=== PATIENT | female | born 1980 | race Caucasian/White ===

== ENCOUNTER → 2018-04-18 09:09 | Outpatient (CLI) | payer OTHER, SELFPAY ==
[2018-04-18 11:38] LABS: Hematocrit 41.5 % (37-47); Hemoglobin 13.2 g/dl (12.0-15.0); Mean Corp Hgb Conc 31.8 g/gl (32-36); Mean Corpuscular Hgb 29.6 pg (27.0-32.0); Mean Platelet Vol. 9.2 fl (6.2-12.0); Platelet Count 351 K/mm3 (150-450); RBC Distribution Width CV 12.7 % (11.6-14.6); RBC Distribution Width SD 43.1 fl (35.1-43.9); Red Blood Count 4.46 M/mm3 (4.2-5.4); White Blood Count 8.3 K/mm3 (4.4-11.0)
[2018-04-18 11:39] LABS: Scan Indicated on CBC? Y/N NO
[2018-04-18 12:02] LABS: Hemoglobin A1c 5.7 % (4.2-6.3); Progesterone Level 7.72 ng/mL (See Comment)
[2018-04-18 12:03] LABS: Estradiol 92.2 pg/mL; Free T3 2.8 pg/mL (2.18-3.98); T4 Free Direct 0.79 ng/dL (0.76-1.46); Thyroid Stim Hormone (TSH) 4.62 uIU/mL (0.358-3.74)
[2018-04-22 08:23] LABS: HPV Reflexed? NOT INDICATED
== END ==
PROVIDERS: Visit Provider Obstetrics & Gynecology
DX: Z12.4 Encounter for screening for malignant neoplasm of cervix (principal); N92.0 Excessive and frequent menstruation with regular cycle; N94.6 Dysmenorrhea, unspecified
CPT/HCPCS: 36415; 82670; 83036; 84144; 84403; 84439; 84443; 84481; 85027; 88175; G0145

== ENCOUNTER → 2019-12-08 13:34 | Outpatient (CLI) | payer OTHER, SELFPAY ==
[2019-12-13 05:47] LABS: HPV APTIMA, High Risk Negative (Negative)
== END ==
PROVIDERS: Visit Provider Student in an Organized Health Care Education/Training Program
DX: Z12.4 Encounter for screening for malignant neoplasm of cervix (principal)
CPT/HCPCS: 87624; 88175; G0145

== ENCOUNTER → 2020-01-05 07:12 | Outpatient (CLI) | payer OTHER, SELFPAY ==
--- NOTE | 2020-01-05 07:14 | BI_ITS ---
MAMMOGRAPHY - BILATERAL SCREENING REASON FOR EXAM: Female, 39 years old. Routine annual screening examination. PERTINENT HISTORY: Grandmother with breast cancer. TECHNIQUE: Digital bilateral breast tico (3D mammographic acquisition) in the CC and MLO projections. 2-D mediolateral oblique (MLO) and craniocaudad (CC) views of both breasts were obtained. CAD: Full Field Digital Mammography with Computer Added Detection was performed. COMPARISON: Comparison is made with prior examination dated 03/29/2017. FINDINGS: Breast Composition: The breasts are extremely dense, which lowers the sensitivity of mammography. There are no dominant masses or suspicious calcifications. No other significant abnormalities are identified. There has been no significant change since the prior study. BI/SCREEN MAMM (CAD) W/TICO BILAT IMPRESSION: Stable bilateral screening mammogram. Yearly follow-up mammogram recommended. (A) ASSESSMENT CATEGORY: BIRADS Category 1: Negative. A letter regarding these results will be sent to the patient by the facility within 30 days. Approximately 10% of breast cancers are not detected by mammography. A normal mammogram should not delay biopsy of a clinically suspicious abnormality. [id number] Electronically Signed: Mu Austin, at 8:32 EDT , Service support ,
== END ==
PROVIDERS: PCP Student in an Organized Health Care Education/Training Program; Referring Provider Student in an Organized Health Care Education/Training Program; Visit Provider Student in an Organized Health Care Education/Training Program
DX: Z12.31 Encounter for screening mammogram for malignant neoplasm of breast (principal); Z80.3 Family history of malignant neoplasm of breast
CPT/HCPCS: 77063; 77067

== ENCOUNTER → 2020-02-19 10:26 | Outpatient (CLI) | payer OTHER, SELFPAY ==
[2020-02-19 12:28] LABS: Progesterone Level 0.85 ng/mL (See Comment)
[2020-02-19 12:30] LABS: Estradiol 262.9 pg/mL; Follicle Stimulating Hormone 18.8 mIU/mL; Luteinizing Hormone 56.4 mIU/mL
== END ==
PROVIDERS: PCP Student in an Organized Health Care Education/Training Program; Visit Provider Student in an Organized Health Care Education/Training Program
DX: N94.5 Secondary dysmenorrhea (principal); N94.2 Vaginismus
CPT/HCPCS: 36415; 82670; 83001; 83002; 84144

== ENCOUNTER → 2021-02-15 11:00 | Outpatient (CLI) | payer OTHER, SELFPAY | PROVIDERS: PCP Student in an Organized Health Care Education/Training Program; Visit Provider Family Medicine | DX: Z23 Encounter for immunization (principal) | CPT/HCPCS: 0004A; 91300 ==

== ENCOUNTER → 2021-02-28 13:39 | Outpatient (CLI) | payer OTHER, SELFPAY ==
[2021-03-07 17:07] LABS: HPV APTIMA, High Risk Negative (Negative)
== END ==
PROVIDERS: PCP Student in an Organized Health Care Education/Training Program; Visit Provider Student in an Organized Health Care Education/Training Program
DX: Z12.4 Encounter for screening for malignant neoplasm of cervix (principal)
CPT/HCPCS: 87624; 88175; G0145

== ENCOUNTER → 2021-03-24 07:25 | Outpatient (CLI) | payer OTHER, SELFPAY ==
--- NOTE | 2021-03-24 07:35 | BI_ITS ---
MAMMOGRAPHY - BILATERAL SCREENING REASON FOR EXAM: Female, 41 years old. Routine annual screening examination. PERTINENT HISTORY: Grandmother with breast cancer. TECHNIQUE: Digital bilateral breast tico (3D mammographic acquisition) in the CC and MLO projections. 2-D mediolateral oblique (MLO) and craniocaudad (CC) views of both breasts were obtained. CAD: Full Field Digital Mammography with Computer Added Detection was performed. COMPARISON: Comparison is made with prior study dated 01/05/2020 and 03/29/2017. FINDINGS: Breast Composition: The breasts are extremely dense, which lowers the sensitivity of mammography. There is a 2.2 cm x 2.9 cm well-defined nodule in the upper lateral aspect of the right breast. Adjacent to this nodule, there is a well-defined 1.6 cm nodule Correlation with ultrasound is recommended. Stable small benign-appearing bilateral axillary lymph nodes. No other significant abnormalities are identified. BI/SCRN MAMM (CAD)W/TICO BILAT IMPRESSION: 2.2 cm x 2.9 cm well-defined nodule in the upper lateral aspect of the right breast as well as an adjacent 1.6 cm nodule. Correlation with ultrasound is recommended. ASSESSMENT CATEGORY: BIRADS Category 0: Incomplete. Need additional imaging evaluation. A letter regarding these results will be sent to the patient by the facility within 30 days. Approximately 10% of breast cancers are not detected by mammography. A normal mammogram should not delay biopsy of a clinically suspicious abnormality. [id number] Electronically Signed: Mu Austin MD at 9:05 EST , Service support ,
== END ==
PROVIDERS: PCP Student in an Organized Health Care Education/Training Program; Referring Provider Student in an Organized Health Care Education/Training Program; Visit Provider Student in an Organized Health Care Education/Training Program
DX: Z12.31 Encounter for screening mammogram for malignant neoplasm of breast (principal)
CPT/HCPCS: 77063; 77067

== ENCOUNTER → 2021-03-28 13:54 | Outpatient (CLI) | payer OTHER, SELFPAY ==
--- NOTE | 2021-03-28 13:57 | US_ITS ---
STUDY: ULTRASOUND BREAST - RIGHT REASON FOR EXAM: Female, 41 years old. Abnormal screening mammogram. TECHNIQUE: Axial and longitudinal images of the RIGHT breast were performed with a high resolution ultrasound transducer. # OF IMAGES: 18 COMPARISON: Comparison is made with prior mammogram dated 03/24/2021. FINDINGS: RIGHT Breast: There is a 2.5 cm x 2.2 cm x 1 cm cyst at the 11 o''clock position of the breast at 3 cm from the nipple. This also evidence of a 1 cm x 0.9 cm x 0.6 cm cyst at the 11 o''clock position of the breast at 2 cm from the nipple. US/Breast Limited Unilateral IMPRESSION: The mammographic findings correspond to 2 adjacent cysts at the 11 o''clock position of the breast at 2 and 3 cm from the nipple. The largest cyst measures 2.5 cm x 2.2 cm x 1 cm. ASSESSMENT CATEGORY: BIRADS Category 2: Benign. A letter regarding these results will be sent to the patient by the facility within 30 days. Electronically Signed: Mu Austin MD at 15:13 EST , Service support ,
== END ==
PROVIDERS: PCP Student in an Organized Health Care Education/Training Program; Referring Provider Student in an Organized Health Care Education/Training Program; Visit Provider Student in an Organized Health Care Education/Training Program
DX: N60.01 Solitary cyst of right breast (principal)
CPT/HCPCS: 76642

== ENCOUNTER → 2022-04-12 | Outpatient (CLI) | payer OTHER, SELFPAY ==
--- NOTE | 2022-04-12 07:43 | BI_ITS ---
MAMMOGRAPHY - BILATERAL SCREENING REASON FOR EXAM: Female, 42 years old. Routine annual screening examination. PERTINENT HISTORY: Grandmothers with breast cancer. TECHNIQUE: Digital bilateral breast tico (3D mammographic acquisition) in the CC and MLO projections. 2-D mediolateral oblique (MLO) and craniocaudad (CC) views of both breasts were obtained. CAD: Full Field Digital Mammography with Computer Added Detection was performed. COMPARISON: Comparison is made with prior study dated 03/24/2021 and 01/05/2020. FINDINGS: Breast Composition: The breasts are extremely dense, which lowers the sensitivity of mammography. Stable 3 cm x 2.9 cm well-defined nodule in the upper lateral aspect of the right breast. This was demonstrated to be a cyst on prior sonogram. Stable small fat-containing bilateral axillary lymph nodes. No other significant abnormalities are identified. There has been no significant change since the prior study. BI/SCRN MAMM (CAD)W/TICO BILAT IMPRESSION: Stable bilateral screening mammogram. Yearly follow-up mammogram recommended. (A) ASSESSMENT CATEGORY: BIRADS Category 2: Benign. A letter regarding these results will be sent to the patient by the facility within 30 days. Approximately 10% of breast cancers are not detected by mammography. A normal mammogram should not delay biopsy of a clinically suspicious abnormality. [id number] Electronically Signed: Mu Austin MD at 9:21 EST ,
== END | disposition home or self-care (01) ==
LOC: OPBI 07:42
PROVIDERS: PCP Student in an Organized Health Care Education/Training Program; Visit Provider Obstetrics & Gynecology
DX: Z12.31 Encounter for screening mammogram for malignant neoplasm of breast (principal)
CPT/HCPCS: 77063; 77067

== ENCOUNTER → 2023-04-15 | Outpatient (CLI) | payer OTHER, SELFPAY ==
--- NOTE | 2023-04-15 07:51 | BI_ITS ---
MAMMOGRAPHY - BILATERAL SCREENING REASON FOR EXAM: Female, 43 years old. Routine annual screening examination. PERTINENT HISTORY: Grandmother with breast cancer. TECHNIQUE: Digital bilateral breast tico (3D mammographic acquisition) in the CC and MLO projections. 2-D mediolateral oblique (MLO) and craniocaudad (CC) views of both breasts were obtained. CAD: Full Field Digital Mammography with Computer Added Detection was performed. COMPARISON: Comparison is made with prior study dated October 10, 2022 and March 24, 2021. FINDINGS: Breast Composition: The breasts are extremely dense, which lowers the sensitivity of mammography. Stable 3 cm x 2.9 cm well-defined nodule in the upper lateral aspect of the right breast. This was demonstrated to be a cyst on prior sonogram. No other significant abnormalities are identified. There has been no significant change since the prior study. BI/SCRN MAMM (CAD)W/TICO BILAT IMPRESSION: Stable bilateral screening mammogram. Yearly follow-up mammogram recommended. (A) ASSESSMENT CATEGORY: BIRADS Category 2: Benign. A letter regarding these results will be sent to the patient by the facility within 30 days. Approximately 10% of breast cancers are not detected by mammography. A normal mammogram should not delay biopsy of a clinically suspicious abnormality. [id number] Electronically Signed: Mu Austin MD at 15:46 EST ,
--- OUTSIDE RECORDS SUMMARY | 2023-04-15 08:18 | XMS RPT_ITS | CCD ---
Author Name Unknown Address [address] [place] [address] Organization [facility] Care Team Providers Care 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 Name Role Phone Hong Pino DO Primary Care Provider [phone] HONG PINO Primary Care Unavailable HONG PINO Attending Unavailable HONG PINO Primary Care Unavailable JOHANNE TOSCANO Referring Unavailable HONG PINO Referring Unavailable HONG PINO Primary Care Unavailable HONG PINO Primary Care Unavailable Hong Pino DO Primary Care Provider Medications Current Medications Medication Drug Class(es) Dates Sig (Normalized) Sig (Original) triamcinolone acetonide 1 mg/ml topical cream (1 source) Corticosteroid Start: 09-29-2021 End: 10-06-2021 triamcinolone acetonide (KENALOG) 0.1 % cream Apply 1 application to affected area twice daily for 7 days. Apply sparingly to area for rash/itching. 45 g 0 09/29/2021 10/06/2021 Active Completed/Discontinued Medications Medication Drug Class(es) Dates Sig (Normalized) Sig (Original) azelastine hydrochloride 0.137 mg/actuat / fluticasone propionate 0.05 mg/actuat metered dose nasal spray (18 sources) Corticosteroid, Histamine-1 Receptor Antagonist Start: 03-05-2022 take 1 spray(s) nasal route twice daily azelastine-flutic asone 137-50 mcg/spray spry USE ONE SPRAY IN EACH NOSTRIL TWICE DAILY 23 g 5 03/05/2022 Active Problems Active Problems Problem Classification Problem Date Documented Da te Episodic/Chronic Anxiety disorders (17 sources) Anxiety disorder; Translations: [Anxiety disorder, unspecified] Onset: 08-19-2015 08-19-2015 Chronic Cardiac dysrhythmias (17 sources) Premature atrial contraction; Translations: [Atrial premature depolarization] Onset: 08-19-2015 08-19-2015 Chronic Disorders of lipid metabolism (20 sources) Pure hypercholesterolemi a; Translations: [Pure hypercholesterolemi a, unspecified] Onset: 08-19-2015 08-19-2015 Chronic Genitourinary symptoms and ill-defined conditions (17 sources) Female stress incontinence; Translations: [Stress incontinence (female) (male)] Onset: 03-20-2021 03-20-2021 Chronic Headache; including migraine (1 source) Refractory migraine with aura; Translations: [Migraine with aura, intractable, without status migrainosus] Chronic Nutritional deficiencies (17 sources) Vitamin D deficiency; Translations: [Vitamin D deficiency, unspecified] Onset: 08-19-2015 08-19-2015 Chronic Other skin disorders (1 source) Eruption; Translations: [Rash and other nonspecific skin eruption] Episodic Thyroid disorders (20 sources) Subclinical hypothyroidism; Translations: [Other specified hypothyroidism] Onset: 07-09-2018 07-09-2018 Chronic Past or Other Problems Problem Classification Problem Date Documented Da te Episodic/Chronic Genitourinary symptoms and ill-defined conditions (17 sources) Urgent desire to urinate; Translations: [Urgency of urination] Onset: 03-20-2021 03-20-2021 Episodic Malaise and fatigue (17 sources) Fatigue; Translations: [Other fatigue] Onset: 05-27-2019 05-27-2019 Episodic Results Test Name Value Interpretation Reference Range Facil ity Vital Signs Date Time Vital Sign Value Performing Clinician Demond acharya 09-29-2021 15:25-0400 Body temperature 98.2 [degF] Luke Jason APRN.CNP Work Phone: [facility] 09-29-2021 15:25-0400 Body weight 65.5 kg Luke Jason APRN.CNP Work Phone: [facility] 09-29-2021 15:25-0400 Diastolic blood pressure 74 mm[Hg] Luke Jason APRN.CNP Work Phone: [facility] 09-29-2021 15:25-0400 Heart rate 75 /min Luke Jason APRN.CNP Work Phone: [facility] 09-29-2021 15:25-0400 Respiratory rate 16 /min Luke Pugaanjelica PATIENT SERVICES ASSISTANT.PARKING ATTENDANT Work Phone: [facility] 09-29-2021 15:25-0400 SaO2% (BldA) [Mass fraction] 99 % Luke Pugaanjelica PATIENT SERVICES ASSISTANT.PARKING ATTENDANT Work Phone: [facility] 09-29-2021 15:25-0400 Systolic blood pressure 122 mm[Hg] Luke Pugaanjelica PATIENT SERVICES ASSISTANT.PARKING ATTENDANT Work Phone: [facility] Encounters Encounter Date Encounter Type Care Provider Facility Start: 02-26-2023 Refill Johanne Toscano PATIENT SERVICES ASSISTANT.PARKING ATTENDANT Work Phone: [facility] [place] Procedures Date Procedure Procedure Detail Performing Clinician Start: 04-12-2022 Mammography Hong hayes DO Work Phone: Start: 06-17-2021 Adult depression scr eening assessment Joao Abraham MD Work Phone: Plan of Treatment Date Care Activity Detail Author Start: 02-28-2026 HPV TESTING HPV TESTING [facility] Start: 02-28-2026 PAP TESTING PAP TESTING [facility] Start: 06-30-2023 ANNUAL PCP TEAM CHRONIC DISEASE VISIT ANNUAL PCP TEAM CHRONIC DISEASE VISIT [facility] Start: 04-12-2023 Mammography [facility] Start: 12-07-2022 Covid-19 Vaccine ( season) Covid-19 Vaccine () [facility] Start: 12-07-2022 Influenza vaccination [facility] Start: 06-21-2022 ANNUAL PCP TEAM CHRONIC DISEASE VISIT ANNUAL PCP TEAM CHRONIC DISEASE VISIT [facility] Start: 06-17-2022 Adult depression screening assessment DEPRESSION SCREENING [facility] Start: 06-03-2022 End: 08-03-2022 CBC W Auto Differential panel - Blood CBC + DIFF Lab Routine Wellness examination Expected: 06/03/2022, Expires: 08/03/2022 [facility] Work Phone: Immunizations Immunization Date Immunization Notes Care Provider Liliana fernandez 11-09-2022 influenza, seasonal, injectable Johanne Toscano APRN.PARKING ATTENDANT Work Phone: [facility] Work Phone: 02-14-2022 influenza virus vaccine, unspecified formulation Johanne Everton GUEVARA.PARKING ATTENDANT Work Phone: [facility] 03-15-2021 influenza, seasonal, injectable Joao Abraham MD Work Phone: [facility] Work Phone: 02-17-2020 influenza, seasonal, injectable Joao Abraham MD Work Phone: [facility] Work Phone: Payers Date Payer Category Payer Unknown [id number] 2020 Unknown [facility] PPO [employer] [id number] 2020-Present [phone] [address] [place] [address] PPO [id number] 2020 Unknown [id number] Social History Date Type Detail Facility Start: 07-28-2014 End: 06-29-2022 Tobacco smoking status NHIS Never smoked tobacco [facility] Work Phone: Start: 07-28-2014 End: 06-29-2022 Tobacco use and exposure Smokeless tobacco non-user [facility] Work Phone: Start: 06-21-2021 End: 06-29-2022 Alcohol intake Current non-drinker of alcohol (finding) [facility] Start: 06-18-2021 End: 06-22-2022 History SDOH Alcohol Frequency 4 [facility] Start: 06-18-2021 End: 06-22-2022 History SDOH Alcohol Std Drinks 1 [facility] Start: 06-18-2021 End: 06-22-2022 History SDOH Alcohol Binge 2 [facility] Start: 06-18-2021 End: 06-22-2022 History SDOH Social Connections Phone 5 [facility] Start: 06-18-2021 End: 06-22-2022 History SDOH Social Connections Living 3 [facility] Start: 06-13-2020 Education 17 [facility] Start: 1980 Sex Assigned At Female C [facility] Start: 06-11-2021 End: 09-29-2021 Exposure to SARS-CoV-2 (event) Not sure [facility] Work Phone: Start: 06-22-2022 History SDOH Social Connections Meetings 98 [facility] Start: 06-22-2022 End: 06-29-2022 History of Social function [facility] Start: 06-22-2022 End: 06-29-2022 Social connection and isolation panel [facility] Attends [employer] Not on file [facility] Do you belong to any clubs or organizations such as mormonism groups, unions, fraternal or athletic groups, or school groups? No [facility] Are you now , , , , never or living with a partner? [facility] How often to you hav e a drink containing alcohol? 2-3 time sa week [facility] How many standard dr inks containing alcohol do you have on a typical day? 1 or 2 [facility] How often do you hav e 6 or more drinks on 1 occasion? Never [facility] Do you feel stress - tense, restless, nervous, or anxious, or unable to sleep at night because your mind is troubled all the time - these days [OSQ] Not at all [facility] (I/We) worried wheth er (my/our) food would run out before (I/we) got money to buy more. Never true [facility] Start: 09-05-2018 Gender identity Identifies as female gender (finding) [facility] Start: 09-05-2018 Sexual orientation Homosexual (findi ng) [facility] Clinical Notes 07-11-2021 to 02-26-2023 Telephone Encounter - Emilie Hollis LPN - 02/26/2023 11:25 AM ESTTelephone Encounter - Mary Walker Ma - 12/03/2022 10:09 AM EDTTelephone Encounter - Sera Swift Ma - 12/07/2021 8:30 AM EDT Note Date & Type Note Facility 02-26-2023 Miscellaneous Notes Formattin g of this note is different from the original. Patient has been identified by name and date of : Yes Patient phones for refill(s): Requested Prescriptions Pending Prescriptions Disp Refills rosuvastatin (CRESTOR) 5 mg tablet 90 tablet 0 Sig: Take 1 tablet by mouth daily at bedtime. Date of last office visit in primary care: 06/29/2022 Date of next office visit in primary care: Visit date not found Please advise. Thank you. Emilie Hollis LPN. documented in this encounter [facility] 12-03-2022 Miscellaneous Notes Formattin g of this note might be different from the original. See refill request 12/03/22 documented in this encounter [facility] 12-03-2022 Miscellaneous Notes Formattin g of this note might be different from the original. Last office visit: 06/29/22 F/u scheduled: none Mary Walker Ma documented in this encounter [facility] 09-08-2022 Miscellaneous Notes Formattin g of this note might be different from the original. Judi--06/29/22 Judi--nothing scheduled Last refill--06/04/22 90 with 0 refills Last labs--06/23/22 documented in this encounter [facility] 06-29-2022 Note HNO ID: [id number] Author: Hong Pino, DO Service: ? Author Type: Physician Type: Progress Notes Filed: 07/04/2022 9:38 PM Note Text: CC: Sandro Trimble is a 42 year old female who presents to the office for physical HPI: Dyslipidemia, taking crestor 5 mg a day, tolerating well without SE to medications The 10-year ASCVD risk score (Yan DK, et al., 2019) is: 0.5% Values used to calculate the score: Age: 42 years Sex: Female Is Non- : No Diabetic: No Tobacco smoker: No Systolic Blood Pressure: 110 mmHg Is BP treated: No HDL Cholesterol: 45 mg/dL Total Cholesterol: 182 mg/dL Cholesterol, Total Date Value Ref Range Status 06/23/2022 182 <200 mg/dL Final Comment: <200 mg/dL, Desirable 200-239 mg/dL, Borderline high >239 mg/dL, High HDL Cholesterol Date Value Ref Range Status 06/23/2022 45 >39 mg/dL Final Comment: 40-59 mg/dL, Acceptable >59 mg/dL, High: Negative risk factor for coronary heart disease <40 mg/dL, Low: Positive risk factor for coronary heart disease LDL Cholesterol Date Value Ref Range Status 06/23/2022 120 (H) <100 mg/dL Final Comment: <100 mg/dL, Optimal 100-129 mg/dL, Near optimal/above optimal 130-159 mg/dL, Borderline high 160-189 mg/dL, High >189 mg/dL, Very high Secondary prevention optimal LDL Cholesterol levels are recommended to be < 70 mg/dL Triglyceride Date Value Ref Range Status 06/23/2022 86 <150 mg/dL Final Comment: <150 mg/dL, Normal 150-199 mg/dL, Borderline high 200-499 mg/dL, High >499 mg/dL, Very high Has had 2 mammograms now, no breast concerns. Hypothyroidism, taking levothyroxine, tolerating well TSH Date Value Ref Range Status 06/23/2022 0.836 0.270 - 4.200 mIU/L Final Comment: If the patient is , TSH reference range varies by gestational period: First Trimester (weeks 9-12): 0.180-2.990 mIU/L Second Trimester: 0.110-3.980 mIU/L Third Trimester: 0.480-4.710 mIU/L Saeid Mendoza et al. A Practical Approach for the Verifications and Determination of Site- and Trimester-Specific Reference Intervals for Thyroid Function tests in . Thyroid, 2019:29:3:412-420. Chandler E, et al. 2017 Guidelines of the [place] Thyroid Association for the Diagnosis and Management of Thyroid Disease during and the . Thyroid, 2017:27:3:315-389. Free T4 Date Value Ref Range Status 06/23/2022 1.4 0.9 - 1.7 ng/dL Final Glucose (mg/dL) Date Value 06/23/2022 100 06/14/2020 87 Potassium (mmol/L) Date Value 06/23/2022 4.6 06/14/2020 4.3 Sodium (mmol/L) Date Value 06/23/2022 140 06/14/2020 139 Chloride (mmol/L) Date Value 06/23/2022 104 06/14/2020 103 CO2 (mmol/L) Date Value 06/23/2022 26 06/14/2020 29 Creatinine (mg/dL) Date Value 06/23/2022 0.83 06/14/2020 0.80 BUN (mg/dL) Date Value 06/23/2022 9 06/14/2020 14 Anion Gap (mmol/L) Date Value 06/23/2022 10 06/14/2020 7 Calcium (mg/dL) Date Value 06/14/2020 9.5 Calcium, Total (mg/dL) Date Value 06/23/2022 9.8 Protein, Total (g/dL) Date Value 06/23/2022 7.4 06/14/2020 7.2 Albumin (g/dL) Date Value 06/23/2022 4.7 06/14/2020 4.3 Bilirubin, Total (mg/dL) Date Value 06/23/2022 0.4 06/14/2020 0.2 Alkaline Phosphatase (U/L) Date Value 06/23/2022 51 06/14/2020 61 AST (U/L) Date Value 06/23/2022 20 06/14/2020 22 ALT (U/L) Date Value 06/23/2022 13 06/14/2020 11 Hemoglobin (g/dL) Date Value 06/23/2022 14.0 08/02/2020 13.3 Hematocrit (%) Date Value 06/23/2022 42.6 08/02/2020 39.7 WBC (k/uL) Date Value 06/23/2022 9.99 08/02/2020 9.38 PAST MEDICAL HISTORY Diagnosis Date Anxiety Cold sore recurrent, history of Environmental allergies never tested History of mammogram 03/29/2017 routine d/t family hx breast cancer- grandmother Premature atrial contractions 08/2015 [facility] monitor Vitamin D deficiency 06/2015 PAST SURGICAL HISTORY Procedure Laterality Date NONE Social History: Social History Tobacco Use Smoking status: Never Smokeless tobacco: Never Substance Use Topics Alcohol use: No Drug use: No FAMILY HISTORY Problem Relation Age of Onset Lipids Mother Heart Father pacemaker other (migraine headache) Father Breast Cancer Maternal Grandmother Heart Maternal Grandfather other (Parkinsons) Maternal Grandfather Breast Cancer Paternal Grandmother Heart Paternal Grandfather pacemaker Hypertension Paternal Grandfather Cancer Paternal Grandfather Current Outpatient prescriptions: levothyroxine (SYNTHROID) 112 mcg tablet Take 1 tablet by mouth daily before breakfast. rosuvastatin (CRESTOR) 5 mg tablet Take 1 tablet by mouth daily at bedtime. montelukast (SINGULAIR) 10 mg tablet Take 1 tablet by mouth daily at bedtime. azelastine-fluticasone 137-50 mcg/spray spry USE ONE SPRAY IN EACH NOSTRIL TWICE DAILY SUMAtriptan (IMITREX) (more content not included)... [facility] 06-25-2022 Miscellaneous Notes Formattin g of this note might be different from the original. Ujdi--06/21/21 Nov--06/29/22 Last refill--06/21/21 90 with 3 refills Last labs--06/23/22 documented in this encounter [facility] 06-04-2022 Miscellaneous Notes Formattin g of this note might be different from the original. Judi--06/21/21 Nov--06/29/22 Last refill--03/05/22 90 with 0 refills Last labs--05/03/22 documented in this encounter [facility] 05-16-2022 Miscellaneous Notes Formattin g of this note is different from the original. Patient phones requesting refills as follows: Requested Prescriptions Pending Prescriptions Disp Refills montelukast (SINGULAIR) 10 mg tablet 90 tablet 1 Sig: Take 1 tablet by mouth daily at bedtime. JUDI-06/21/21 Labs-11/23/21 NOV-06/29/21 med filled 11/23/21 Please review and advise. Malika Collins LPN documented in this encounter [facility] 12-18-2021 Miscellaneous Notes Formattin g of this note might be different from the original. Patient states she will hold off on titer at this time & try a personal exemption. Lilia Torre MA Please call patient and clarify her message further. Would she be willing to have Varicella titer lab drawn to see if she is still Varicella immune? I don't have these records otherwise of her varicella in childhood Hong Pino DO Please see pt [employer] message. Turned into TE per JG. 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 Would Dr. Pino be able to complete the attached exemption form and either send it back to me or directly to [employer] via email ( ) or fax ([phone])? If this form can not be completed, please let me know so I can figure out what my next steps need to be. [email or web address] Thank you! documented in this encounter [facility] 12-18-2021 Miscellaneous Notes Formattin g of this note might be different from the original. Turned into TE per JG Sera Swift Ma documented in this encounter [facility] 12-07-2021 Miscellaneous Notes Formattin g of this note might be different from the original. Thank you. The following approved medication requests have been transmitted electronically. Requested Prescriptions Signed Prescriptions Disp Refills rosuvastatin (CRESTOR) 5 mg tablet 90 tablet 0 Sig: Take 1 tablet by mouth daily at bedtime. Authorizing Provider: JOHANNE WORRELL APRN.CNP Pt informed, verbalized understanding. Pt is willing to try Crestor. Please send rx to [facility] in [place]. Sera Swift Ma Please inform patient that overall her thyroid labs are stable. Her cholesterol remains very elevated, including total, LDL, triglyceride levels. Please ask if she is willing to try a low dose cholesterol medication crestor 5-10 mg a day Also needs to be following low cholesterol diet as well. Hong Pino DO documented in this encounter [facility] 12-04-2021 Miscellaneous Notes Formattin g of this note might be different from the original. See update from pt. Myriam Landa Ma Thank you for reaching out to us through [employer]. We have forwarded your message to your provider. Our goal is to respond within 3 business days. If you feel your message is urgent in nature, please call the office instead. Thank you for choosing [facility] for your health care needs. documented in this encounter [facility] 12-04-2021 Miscellaneous Notes Formattin g of this note might be different from the original. Judi--- 06/21/21 nov---nothing scheduled Last refill-- 03/14/18 12 with 5 refills Last labs--11/23/21 documented in this encounter [facility] 11-23-2021 Miscellaneous Notes Formattin g of this note is different from the original. Patient phones requesting refills as follows: Requested Prescriptions Pending Prescriptions Disp Refills montelukast (SINGULAIR) 10 mg tablet 90 tablet 1 Sig: Take 1 tablet by mouth daily at bedtime. JUDI-06/21/21 Labs-06/09/21 NOV-none med filled 06/07/21 Please review and advise. Malika Collins LPN documented in this encounter [facility] 09-29-2021 Note HNO ID: [id number] Author: Luke Jason APRN.PARKING ATTENDANT Service: ? Author Type: Nurse Practitioner Type: Progress Notes Filed: 09/29/2021 3:52 PM Note Text: Subjective HPI Nontoxic-appearing female presents urgent care chief plaint pruritic rash. Duration of symptoms 5 days. Associated symptoms erythematous pruritic rash on her torso. States this developed shortly after her camping trip was over. Has not use any OTC medications. No recent lifestyle or medication changes no antibiotic use. There is no pain. Denies any fever body aches chills nausea vomiting abdominal pain change in bowel or bladder habits. Past medical history prescription medication use allergies reviewed. Denies chance of . .Patient presents with: Rash: Pt reported rash on torso, onset x5 days, denied pain PAST MEDICAL HISTORY Diagnosis Date - Anxiety - Cold sore recurrent, history of - Environmental allergies never tested - History of mammogram 03/29/2017 routine d/t family hx breast cancer- grandmother - Premature atrial contractions 08/2015 [facility] monitor - Vitamin D deficiency 06/2015 PAST SURGICAL HISTORY Procedure Laterality Date - NONE ALLERGIES Patient has no known allergies. MEDICATIONS azelastine-fluticasone 137-50 mcg/spray spry USE ONE SPRAY IN EACH NOSTRIL TWICE DAILY levothyroxine (SYNTHROID) 112 mcg tablet Take 1 tablet by mouth daily before breakfast. montelukast (SINGULAIR) 10 mg tablet Take 1 tablet by mouth daily at bedtime. lysine 1,000 mg tab Take by mouth once daily. riboflavin, vitamin B2, 400 mg tab Take by mouth. Magnesium Oxide 250 mg magnesium tab Take by mouth once daily. Biotin 10 mg tab Take by mouth. SUMAtriptan (IMITREX) 50 mg tablet Take one tablet by mouth at onset of migraine. May repeat in 2 hours if no relief. No more than 2 tablets in 24 hours. cholecalciferol (VITAMIN D3) 2,000 unit tablet Take 1 tablet by mouth once daily. valACYclovir (VALTREX) 500 mg tablet Take 1 tablet by mouth once daily. FLUTICASONE PROPIONATE (FLONASE NASAL) Use 1-2 Sprays in the nose once daily. CETIRIZINE HCL (ZYRTEC ORAL) Take by mouth once daily. mupirocin (BACTROBAN) 2 % ointment Apply 1 application to affected area three times daily. progesterone micronized (PROMETRIUM) 100 mg capsule Take 100 mg by mouth once daily. 3 tablets daily cyanocobalamin (VITAMIN B-12) 1,000 mcg tab Take 1,000 mcg by mouth once daily. FAMILY HISTORY Problem Relation Age of Onset - Lipids Mother - Heart Father pacemaker - other (migraine headache) Father - Breast Cancer Maternal Grandmother - Heart Maternal Grandfather - other (Parkinsons) Maternal Grandfather - Breast Cancer Paternal Grandmother - Heart Paternal Grandfather pacemaker - Hypertension Paternal Grandfather - Cancer Paternal Grandfather Social History Tobacco Use - Smoking status: Never Smoker - Smokeless tobacco: Never Used Substance Use Topics - Alcohol use: No - Drug use: No BP 122/74 Pulse 75 Temp 36.8 ?C (98.2 ?F) Resp 16 Wt 65.5 kg (144 lb 6.4 oz) LMP 09/28/2021 SpO2 99% BMI 26.41 kg/m? Review of Systems Constitutional: Negative for chills, fever and malaise/fatigue. HENT: Negative for congestion, ear discharge, ear pain, sinus pain and sore throat. Eyes: Negative for blurred vision, pain, discharge and redness. Respiratory: Negative for cough, hemoptysis, sputum production, shortness of breath, wheezing and stridor. Cardiovascular: Negative for chest pain. Gastrointestinal: Negative for abdominal pain, diarrhea, nausea and vomiting. Musculoskeletal: Negative for myalgias. Skin: Positive for itching and rash. Neurological: Negative for dizziness and headaches. Objective Physical Exam Constitutional: General: She is not in acute distress. Appearance: She is not diaphoretic. HENT: Head: Normocephalic. Mouth/Throat: Mouth: Mucous membranes are moist. Pharynx: Oropharynx is clear. No oropharyngeal exudate or posterior oropharyngeal erythema. Eyes: Conjunctiva/sclera: Conjunctivae normal. Pupils: Pupils are equal, round, and reactive to light. Cardiovascular: Rate and Rhythm: Normal rate and regular rhythm. Heart sounds: Normal heart sounds. Pulmonary: Effort: Pulmonary effort is normal. No tachypnea, accessory muscle usage or respiratory distress. Breath sounds: Normal breath sounds. No stridor. Abdominal: Palpations: Abdomen is soft. Tenderness: There is no abdominal tenderness. Musculoskeletal: Cervical back: Normal range of motion and neck supple. No rigidity or tenderness. Lymphadenopathy: Cervical: No cervical adenopathy. Skin: General: Skin is warm and dry. Comments: Maculopapular rash noted on patient's torso. There is fluid-filled vesicles. They are in linear pattern. No desquamation of skin no mucosal membrane involvement. No drainage. No pain. Neurological: Mental Status: She is alert (more content not included)... [facility] 09-29-2021 History of Presen t illness Narrative Images from the original note were not included. Subjective HPI Nontoxic-appearing female presents urgent care chief plaint pruritic rash. Duration of symptoms 5 days. Associated symptoms erythematous pruritic rash on her torso. States this developed shortly after her camping trip was over. Has not use any OTC medications. No recent lifestyle or medication changes no antibiotic use. There is no pain. Denies any fever body aches chills nausea vomiting abdominal pain change in bowel or bladder habits. Past medical history prescription medication use allergies reviewed. Denies chance of . .Patient presents with: Rash: Pt reported rash on torso, onset x5 days, denied pain PAST MEDICAL HISTORY Diagnosis Date Anxiety Cold sore recurrent, history of Environmental allergies never tested History of mammogram 03/29/2017 routine d/t family hx breast cancer- grandmother Premature atrial contractions 08/2015 [facility] monitor Vitamin D deficiency 06/2015 PAST SURGICAL HISTORY Procedure Laterality Date NONE ALLERGIES Patient has no known allergies. MEDICATIONS azelastine-fluticasone 137-50 mcg/spray spry USE ONE SPRAY IN EACH NOSTRIL TWICE DAILY levothyroxine (SYNTHROID) 112 mcg tablet Take 1 tablet by mouth daily before breakfast. montelukast (SINGULAIR) 10 mg tablet Take 1 tablet by mouth daily at bedtime. lysine 1,000 mg tab Take by mouth once daily. riboflavin, vitamin B2, 400 mg tab Take by mouth. Magnesium Oxide 250 mg magnesium tab Take by mouth once daily. Biotin 10 mg tab Take by mouth. SUMAtriptan (IMITREX) 50 mg tablet Take one tablet by mouth at onset of migraine. May repeat in 2 hours if no relief. No more than 2 tablets in 24 hours. cholecalciferol (VITAMIN D3) 2,000 unit tablet Take 1 tablet by mouth once daily. valACYclovir (VALTREX) 500 mg tablet Take 1 tablet by mouth once daily. FLUTICASONE PROPIONATE (FLONASE NASAL) Use 1-2 Sprays in the nose once daily. CETIRIZINE HCL (ZYRTEC ORAL) Take by mouth once daily. mupirocin (BACTROBAN) 2 % ointment Apply 1 application to affected area three times daily. progesterone micronized (PROMETRIUM) 100 mg capsule Take 100 mg by mouth once daily. 3 tablets daily cyanocobalamin (VITAMIN B-12) 1,000 mcg tab Take 1,000 mcg by mouth once daily. FAMILY HISTORY Problem Relation Age of Onset Lipids Mother Heart Father pacemaker other (migraine headache) Father Breast Cancer Maternal Grandmother Heart Maternal Grandfather other (Parkinsons) Maternal Grandfather Breast Cancer Paternal Grandmother Heart Paternal Grandfather pacemaker Hypertension Paternal Grandfather Cancer Paternal Grandfather Social History Tobacco Use Smoking status: Never Smoker Smokeless tobacco: Never Used Substance Use Topics Alcohol use: No Drug use: No BP 122/74 Pulse 75 Temp 36.8 C (98.2 F) Resp 16 Wt 65.5 kg (144 lb 6.4 oz) LMP 09/28/2021 SpO2 99% BMI 26.41 kg/m Review of Systems Constitutional: Negative for chills, fever and malaise/fatigue. HENT: Negative for congestion, ear discharge, ear pain, sinus pain and sore throat. Eyes: Negative for blurred vision, pain, discharge and redness. Respiratory: Negative for cough, hemoptysis, sputum production, shortness of breath, wheezing and stridor. Cardiovascular: Negative for chest pain. Gastrointestinal: Negative for abdominal pain, diarrhea, nausea and vomiting. Musculoskeletal: Negative for myalgias. Skin: Positive for itching and rash. Neurological: Negative for dizziness and headaches. Objective Physical Exam Constitutional: General: She is not in acute distress. Appearance: She is not diaphoretic. HENT: Head: Normocephalic. Mouth/Throat: Mouth: Mucous membranes are moist. Pharynx: Oropharynx is clear. No oropharyngeal exudate or posterior oropharyngeal erythema. Eyes: Conjunctiva/sclera: Conjunctivae normal. Pupils: Pupils are equal, round, and reactive to light. Cardiovascular: Rate and Rhythm: Normal rate and regular rhythm. Heart sounds: Normal heart sounds. Pulmonary: Effort: Pulmonary effort is normal. No tachypnea, accessory muscle usage or respiratory distress. Breath sounds: Normal breath sounds. No stridor. Abdominal: Palpations: Abdomen is soft. Tenderness: There is no abdominal tenderness. Musculoskeletal: Cervical back: Normal range of motion and neck supple. No rigidity or tenderness. Lymphadenopathy: Cervical: No cervical adenopathy. Skin: General: Skin is warm and dry. Comments: Maculopapular rash noted on patient's torso. There is fluid-filled vesicles. They are in linear pattern. No desquamation of skin no mucosal membrane involvement. No drainage. No pain. Neurological: Mental Status: She is alert and oriented to person, place, and time. ASSESSMENT/PLAN: 1. Rash - ICD9: 782.1, ICD10: R21 Patient diagnosed with rash. Suspicious of contact dermatitis. Patient will be placed on steroid cream. Will use sparingly. Do not use on areas of thin skin. Red flags for reevaluation discussed. Patient was educated on supportive therapies. Patient will follow up with primary care provider as needed. Patient was instructed to immediately proceed to emergency room for any new, worsening, or symptoms lasting longer than anticipated. The patient's clinical presentation is otherwise unremarkable at this time. Based on exam and clinical finding, the patient is stable for discharge. Plan of care was discussed with patient. Patient verbalizes understanding and agrees to plan of care. This note was generated using [employer] software. It may contain errors in wording, punctuation, or spelling. Luke Jason APRN.NICHO documented in this encounter [facility] 07-11-2021 Miscellaneous Notes My chart message sent telling patient to schedule follow up The following was approved. The patient needs to be seen for a follow-up visit before additional refills will be provided. The following approved medication requests have been transmitted electronically. Signed Prescriptions Disp Refills azelastine-fluticasone 137-50 mcg/spray spry 23 g 0 Sig: USE ONE SPRAY IN EACH NOSTRIL TWICE DAILY CAROL: No Authorizing Provider: JOAO ABRAHAM MD Patient phones requesting refills as follows: Pending Prescriptions Disp Refills AZELASTINE-FLUTICASONE 137 MCG-50 MCG/SPRAY NASAL SPRAY 23 g 0 Sig: USE ONE SPRAY IN EACH NOSTRIL TWICE DAILY CAROL: Yes JUDI 06/30/20 Please review and advise. Jud Nieves RN documented in this encounter [facility] Diagnosis Intractable migraine with aura without status migrainosus Migraine with aura, with intractable migraine, so stated, without mention of status migrainosus [facility] Diagnosis Wellness examination- Primary [facility] Diagnosis Hypothyroidism, acquired Unspecified hypothyroidism documented in this encounter [facility] Summary Purpose Family History No Family History Records Found Advance Directives No Advanced Directives Records Found Additional Source Comments Source Comments (unrecognize d section and content) In the event this informatio n is protected by the Federal Confidentiality of Alcohol and Drug Abuse Patient Records regulations: The Federal rules restrict any use of the information to criminally investigate or prosecute any alcohol or drug abuse patient.[facility] the event this information is protected by the Federal Confidentiality of Alcohol and Drug Abuse Patient Records regulations: The Federal rules restrict any use of the information to criminally investigate or prosecute any alcohol or drug abuse patient.[facility] the event this information is protected by the Federal Confidentiality of Alcohol and Drug Abuse Patient Records regulations: The Federal rules restrict any use of the information to criminally investigate or prosecute any alcohol or drug abuse patient.[facility] the event this information is protected by the Federal Confidentiality of Alcohol and Drug Abuse Patient Records regulations: The Federal rules restrict any use of the information to criminally investigate or prosecute any alcohol or drug abuse patient.[facility] the event this information is protected by the Federal Confidentiality of Alcohol and Drug Abuse Patient Records regulations: The Federal rules restrict any use of the information to criminally investigate or prosecute any alcohol or drug abuse patient.[facility] the event this information is protected by the Federal Confidentiality of Alcohol and Drug Abuse Patient Records regulations: The Federal rules restrict any use of the information to criminally investigate or prosecute any alcohol or drug abuse patient.[facility] the event this information is protected by the Federal Confidentiality of Alcohol and Drug Abuse Patient Records regulations: The Federal rules restrict any use of the information to criminally investigate or prosecute any alcohol or drug abuse patient.[facility] the event this information is protected by the Federal Confidentiality of Alcohol and Drug Abuse Patient Records regulations: The Federal rules restrict any use of the information to criminally investigate or prosecute any alcohol or drug abuse patient.[facility] the event this information is protected by the Federal Confidentiality of Alcohol and Drug Abuse Patient Records regulations: The Federal rules restrict any use of the information to criminally investigate or prosecute any alcohol or drug abuse patient.[facility] the event this information is protected by the Federal Confidentiality of Alcohol and Drug Abuse Patient Records regulations: The Federal rules restrict any use of the information to criminally investigate or prosecute any alcohol or drug abuse patient.[facility] the event this information is protected by the Federal Confidentiality of Alcohol and Drug Abuse Patient Records regulations: The Federal rules restrict any use of the information to criminally investigate or prosecute any alcohol or drug abuse patient.[facility] the event this information is protected by the Federal Confidentiality of Alcohol and Drug Abuse Patient Records regulations: The Federal rules restrict any use of the information to criminally investigate or prosecute any alcohol or drug abuse patient.[facility] the event this information is protected by the Federal Confidentiality of Alcohol and Drug Abuse Patient Records regulations: The Federal rules restrict any use of the information to criminally investigate or prosecute any alcohol or drug abuse patient.[facility] the event this information is protected by the Federal Confidentiality of Alcohol and Drug Abuse Patient Records regulations: The Federal rules restrict any use of the information to criminally investigate or prosecute any alcohol or drug abuse patient.[facility] Campus[facility] the event this information is protected by the Federal Confidentiality of Alcohol and Drug Abuse Patient Records regulations: The Federal rules restrict any use of the information to criminally investigate or prosecute any alcohol or drug abuse patient.[facility] the event this information is protected by the Federal Confidentiality of Alcohol and Drug Abuse Patient Records regulations: The Federal rules restrict any use of the information to criminally investigate or prosecute any alcohol or drug abuse patient.[facility] the event this information is protected by the Federal Confidentiality of Alcohol and Drug Abuse Patient Records regulations: The Federal rules restrict any use of the information to criminally investigate or prosecute any alcohol or drug abuse patient.[facility] Reason for Visit (unrecogniz ed section and content) Reason Comments Rash Pt reported rash on torso, onset x5 days, denied pain Reason Onset Date Comments Refill Request 11/23/2021 Reason Onset Date Comments Refill Request 12/02/2021 Reason Comments Results Reason Comments Question Reason Onset Date Comments Refill Request 05/16/2022 Reason Onset Date Comments Refill Request 06/04/2022 Reason Onset Date Comments Refill Request 06/25/2022 Reason Onset Date Comments Refill Request 09/07/2022 Reason Onset Date Comments Refill Request 12/03/2022 Reason Onset Date Comments Refill Request 02/26/2023 Care Teams (unrecognized sec tion and content) 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 Relationship 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 Start Date End Date Hong Pino DO [address] [place], [place] [id number] PCP - General Family Practice 06/24/15 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 Relationship Specialty Start Date End Date Hong Pino DO [address] [place], [place] [id number] PCP - General Family Practice 06/24/15 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 Relationship Specialty Start Date End Date Hong Pino DO [address] [place], [place] [id number] PCP - General Family Practice 06/24/15 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 Relationship Specialty Start Date End Date Hong Pino, DO [address] [place] [address] PCP - General Family Medicine 06/24/15 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 Relationship Specialty Start Date End Date Hong Pino DO [address] [place] [address] PCP - General Family Medicine 06/24/15 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 Relationship Specialty Start Date End Date Hong Pino, DO [address] [place] [address] PCP - General Family Medicine 06/24/15 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 Relationship Specialty Start Date End Date Hong Pino DO [address] [place] [address] PCP - General Family Medicine 06/24/15 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 Relationship Specialty Start Date End Date Hong Pino DO [address] [place] [address] PCP - General Family Medicine 06/24/15 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 Relationship Specialty Start Date End Date Hong Pino DO [address] [place] [address] PCP - General Family Medicine 06/24/15 INFORMATION SOURCE (unrecogn ized section and content) FOR RECORDS PERTAINING TO PATIENTS WHO ARE OR HAVE BEEN ENROLLED IN A CHEMICAL DEPENDENCY/SUBSTANCEABUSE PROGRAM, SOME INFORMATION MAY BE OMITTED. This clinical summary was aggregated from multiple sources. Caution should be exercised in using it in the provision of clinical care. This summary normalizes information from multiple sources, and as a consequence, information in this document may materially change the coding, format and clinical context of patient data. In addition, data may be omitted in some cases. CLINICAL DECISIONS SHOULD BE BASED ON THE PRIMARY CLINICAL RECORDS. [facility] [employer] [facility]. provides no warranty or guarantee of the accuracy or completeness of information in this document.
== END | disposition home or self-care (01) ==
LOC: OPBI 07:51
PROVIDERS: PCP Student in an Organized Health Care Education/Training Program; Referring Provider Nurse Practitioner Women's Health; Visit Provider Nurse Practitioner Women's Health
DX: Z12.31 Encounter for screening mammogram for malignant neoplasm of breast (principal); Z80.3 Family history of malignant neoplasm of breast
CPT/HCPCS: 77063; 77067

== ENCOUNTER → 2024-01-20 | Outpatient (CLI) | payer OTHER, SELFPAY ==
--- NOTE | 2024-01-20 14:29 | US_ITS ---
STUDY: ULTRASOUND BREAST - RIGHT REASON FOR EXAM: Female, 43 years old. Palpable mass TECHNIQUE: Axial and longitudinal images of the RIGHT breast were performed with a high resolution ultrasound transducer. # OF IMAGES: 40 COMPARISON: Diagnostic mammogram earlier today FINDINGS: RIGHT Breast: Heterogeneous background echotexture. At 11:00, 5 cm nipple, in the area of the opacified amount, ultrasound confirms a 2.5 cm oval parallel circumscribed anechoic mass with posterior enhancement consistent with a cyst within some dense breast parenchyma. At 1:00, 5 cm from nipple, ultrasound confirms a 1.4 cm cyst within dense breast parenchyma. At 2:00, 5 cm nipple, ultrasound confirms a 1.6 cm cyst within dense breast parenchyma. Findings are consistent with fibrocystic change.: US/Breast Limited Unilateral IMPRESSION: Ultrasound confirms fibrocystic change including a 2.5 cm cyst corresponding to the patient''s palpable abnormality. ASSESSMENT CATEGORY: BIRADS Category 2: Benign. A letter regarding these results will be sent to the patient by the facility within 30 days. Electronically Signed: Alhaji Felipe MD at 9:19 EDT ,
--- NOTE | 2024-01-20 14:33 | BI_ITS ---
MAMMOGRAPHY - UNILATERAL DIAGNOSTIC: RIGHT BREAST REASON FOR EXAM: Female, 43 years old. right breast mass PERTINENT HISTORY: Non-contributory. TECHNIQUE: Digital examination. Mediolateral oblique (MLO) and craniocaudad (CC) views of the breast were obtained. CAD: CAD was performed on this study. COMPARISON: 04/15/2023 FINDINGS: Breast Composition: The breasts are extremely dense, which lowers the sensitivity of mammography. 3 cm round obscured equal density mass in the upper outer quadrant of the right breast and ultrasound is recommended for further evaluation. No other significant abnormalities are identified. BI/DIAG MAMM W/CAD, UNILAT IMPRESSION: Further ultrasonographic evaluation recommended, as described above. ASSESSMENT CATEGORY: BIRADS Category 0: Incomplete. Need additional imaging evaluation. A letter regarding these results will be sent to the patient by the facility within 30 days. FOLLOW-UP RECOMMENDATION: Ultrasound recommended. (I) Approximately 10% of breast cancers are not detected by mammography. A normal mammogram should not delay biopsy of a clinically suspicious abnormality. Electronically Signed: Alhaji Felipe MD at 15:00 EDT ,
== END | disposition home or self-care (01) ==
LOC: OPBI 14:28
PROVIDERS: PCP Student in an Organized Health Care Education/Training Program; Referring Provider Nurse Practitioner Women's Health; Visit Provider Nurse Practitioner Women's Health
DX: N63.10 Unspecified lump in the right breast, unspecified quadrant (principal)
CPT/HCPCS: 76642; 77061; 77065; G0279

== ENCOUNTER → 2024-04-16 | Outpatient (CLI) | payer OTHER, SELFPAY ==
--- NOTE | 2024-04-16 15:24 | BI_ITS ---
MAMMOGRAPHY - BILATERAL SCREENING REASON FOR EXAM: Female, 44 years old. Routine annual screening examination. PERTINENT HISTORY: Grandmother with breast cancer. History of prior right breast aspiration. TECHNIQUE: Digital bilateral breast tico (3D mammographic acquisition) in the CC and MLO projections. 2-D mediolateral oblique (MLO) and craniocaudad (CC) views of both breasts were obtained. CAD: Full Field Digital Mammography with Computer Added Detection was performed. COMPARISON: Comparison is made with prior study degenerate2023 and January 20, 2024. FINDINGS: Breast Composition: The breasts are extremely dense, which lowers the sensitivity of mammography. Interval decrease in size of the previously seen 3 cm x 3 cm nodule in the upper outer aspect of the right breast. Persistent 1.7 cm x 1.3 cm well-defined nodule in the axillary region of the right breast suggestive of cysts as seen on prior sonogram. No other significant abnormalities are identified. There has been no significant change since the prior study. BI/SCRN MAMM (CAD)W/TICO BILAT IMPRESSION: Stable bilateral screening mammogram. Yearly follow-up mammogram recommended. (A) ASSESSMENT CATEGORY: BIRADS Category 2: Benign. A letter regarding these results will be sent to the patient by the facility within 30 days. Approximately 10% of breast cancers are not detected by mammography. A normal mammogram should not delay biopsy of a clinically suspicious abnormality. [id number] Electronically Signed: Mu Austin MD at 8:39 EST ,
== END | disposition home or self-care (01) ==
LOC: OPBI 15:24
PROVIDERS: PCP Student in an Organized Health Care Education/Training Program; Referring Provider Nurse Practitioner Women's Health; Visit Provider Nurse Practitioner Women's Health
DX: Z12.31 Encounter for screening mammogram for malignant neoplasm of breast (principal); Z80.3 Family history of malignant neoplasm of breast
CPT/HCPCS: 77063; 77067

== ENCOUNTER → 2024-05-06 | Outpatient (CLI) | payer OTHER, SELFPAY ==
[2024-05-06 17:32] LABS: Vitamin D,25 Hydroxy 75.2 ng/mL
== END | disposition home or self-care (01) ==
PROVIDERS: PCP Student in an Organized Health Care Education/Training Program; Referring Provider Nurse Practitioner Women's Health; Visit Provider Nurse Practitioner Women's Health
DX: Z13.71 Encounter for nonprocreative screening for genetic disease carrier status (principal); Z80.3 Family history of malignant neoplasm of breast; Z80.0 Family history of malignant neoplasm of digestive organs
CPT/HCPCS: 36415; 82306